=== PATIENT | female | born 1955 | race Asian ===

== ENCOUNTER → 2017-01-05 | Outpatient (CLI) | payer MEDICARE | END | disposition home or self-care (01) | LOC: RAD 09:41 | PROVIDERS: ATTEND Internal Medicine Hematology & Oncology | DX: Z45.2 Encounter for adjustment and management of vascular access device (principal); C76.0 Malignant neoplasm of head, face and neck | CPT/HCPCS: 36569; 76937; 77001; C1751 ==

== ENCOUNTER → 2017-09-08 | Outpatient (CLI) | payer MEDICARE | END | disposition home or self-care (01) | LOC: RAD 09:25 | PROVIDERS: ATTEND Internal Medicine Hematology & Oncology | DX: C76.0 Malignant neoplasm of head, face and neck (principal) | CPT/HCPCS: 36569; 76937; 77001; C1751 ==

== ENCOUNTER 2017-10-27 11:28 | Inpatient (IN) | payer MEDICARE ==
[~2017-10-27] VITALS: Ht 160 cm; Wt 45.1 kg
[2017-10-27] MEDS ORDERED: FAMOTIDINE 20 MG/2 ML IVP ONE (12:00)
[2017-10-27] MEDS ORDERED: SODIUM CHLORIDE 0.9% 1,000ML IVBOLUS ONE ×2 (12:00→14:00)
[2017-10-27] MEDS ORDERED: ONDANSETRON ODT 4 MG PO ONE (12:00)
[2017-10-27] MEDS ORDERED: FAMOTIDINE 20 MG/2 ML ONE (12:06)
[2017-10-27] MEDS ORDERED: ONDANSETRON ODT 4 MG ONE (12:06)
[2017-10-27] MEDS ORDERED: MORPHINE SULFATE 4 MG/ML, 1ML ONE ×2 (12:22→13:37)
[2017-10-27] MEDS: MORPHINE SULFATE 4 MG/ML, 1ML IVPush PRN ×2 (12:24→13:47)
[2017-10-27 12:49] LABS: MEAN CORPUSCULAR HEMOGLOBIN 29.2 pg (27.0-34.8); MEAN CORPUSCULAR HGB CONC 32.8 g/dL (32.4-35.8); MEAN CORPUSCULAR VOLUME 89.2 fL (80-100); MEAN PLATELET VOLUME 8.8 fL (7.4-10.4); PLATELET COUNT 169 x10^3/uL (130-400); RED CELL DISTRIBUTION WIDTH 20.5 % (9.6-15.2)
[2017-10-27 12:54] LABS: ALANINE AMINOTRANSFERASE 22 U/L (12-78); ALBUMIN 2.6 g/dL (3.4-5.0); ANION GAP 20 mmol/L (5-15); CALCIUM 10.4 mg/dL (8.5-10.1); CHLORIDE 99 mmol/L (98-107); CREATININE 1.02 mg/dL (0.55-1.02)
[2017-10-27 12:56] LABS: ALKALINE PHOSPHATASE 118 U/L (45-117); BILIRUBIN,TOTAL 1.4 mg/dL (0.2-1.0); TOTAL PROTEIN 7.6 g/dL (6.4-8.2)
[2017-10-27 13:06] LABS: MD YES
[2017-10-27 13:08] LABS: ANISOCYTOSIS 1+; BAND#(MANUAL) 0.94 x10^3/uL; BANDS%(MANUAL) 6 % (0-7); LYMPH#(MANUAL) 0.31 x10^3/uL (1-3.4); LYMPHS% (MANUAL) 2 % (22-44); METAMYELOCYTES# (MANUAL) 0.16 x10^3/uL (0-0); METAMYELOCYTES% (MANUAL) 1 % (0-1); MONOS#(MANUAL) 0.94 x10^3/uL (0.3-2.7); MONOS% (MANUAL) 6 % (2-9); SEG#(MANUAL) 13.35 x10^3/uL (1.8-6.8); SEGS% (MANUAL) 85 % (42-75)
[2017-10-27 13:09] LABS: <PLATELET ESTIMATE> ADEQUATE; <PLT MORPHOLOGY> NORMAL PLT MORPH; TOXIC GRAN 1+
[2017-10-27] MEDS ORDERED: SODIUM CHLORIDE 0.9% 1,000 ML IV ONE (13:36)
[2017-10-27] MEDS ORDERED: PIPERACILLIN/TAZO/PMX 3.375GM 50 ML IVPB ONE (14:00)
[2017-10-27] MEDS ORDERED: MORPHINE SULFATE 4 MG/ML, 1ML IVPush PRN (14:00)
[2017-10-27] MEDS ORDERED: PIPERACILLIN/TAZO/PMX 3.375GM 50 ML ONE (14:19)
[2017-10-27] MEDS ORDERED: METH-356 PO (14:59)
[2017-10-27] MEDS ORDERED: LEVO500T8 PO (14:59)
[2017-10-27] MEDS ORDERED: ONDA4TAB13 SL (14:59)
[2017-10-27] MEDS ORDERED: TEMA30CA PO (14:59)
[2017-10-27] MEDS ORDERED: GABA300C10 PO (14:59)
[2017-10-27] MEDS: NS + 40MEQ KCL 1,000 ML IV SCH (15:55)
[2017-10-27 16:09] VITALS: BP 123/69
[2017-10-27] MEDS ORDERED: OMNIPAQUE 350 MG/ML, 100ML BOTTLE ONE (16:54)
[2017-10-27] MEDS: AMPICILLIN/SULBACTAM 3 GM in SODIUM CHLORIDE 0.9% 100 ML IV SCH ×2 (17:28→23:49)
[2017-10-27] MEDS: NYSTATIN 500,000 UNITS/5 ML UDC PO SCH ×2 (17:28→19:44)
[2017-10-27] MEDS: HEPARIN 5,000 UNITS/ML, 1ML SQ SCH ×2 (17:28→23:50)
[2017-10-27] MEDS: DEXAMETHASONE 4 MG/ML, 1ML IVPush SCH ×2 (17:28→22:10)
[2017-10-27] MEDS ORDERED: ONDANSETRON 2MG/ML, 2ML IVPush PRN (18:15)
[2017-10-27 19:03] VITALS: BP 138/72
[2017-10-27] MEDS: morphine SULFATE 10 MG/ML, 1ML IVPush PRN ×2 (19:44→22:51)
[2017-10-28 01:06] VITALS: BP 100/52
[2017-10-28] MEDS: DEXAMETHASONE 4 MG/ML, 1ML IVPush SCH ×2 (03:10→08:16)
[2017-10-28] MEDS: morphine SULFATE 10 MG/ML, 1ML IVPush PRN ×3 (04:59→13:57)
[2017-10-28] MEDS: NYSTATIN 500,000 UNITS/5 ML UDC PO SCH ×2 (05:08→11:00)
[2017-10-28] MEDS: AMPICILLIN/SULBACTAM 3 GM in SODIUM CHLORIDE 0.9% 100 ML IV SCH (05:08)
[2017-10-28] MEDS: NS + 40MEQ KCL 1,000 ML IV SCH ×2 (05:17→08:20)
[2017-10-28 05:47] LABS: ALBUMIN 2.1 g/dL (3.4-5.0); ANION GAP 15 mmol/L (5-15); CALCIUM 9.8 mg/dL (8.5-10.1); CHLORIDE 113 mmol/L (98-107)
[2017-10-28 05:52] LABS: ALANINE AMINOTRANSFERASE 19 U/L (12-78); ALKALINE PHOSPHATASE 97 U/L (45-117); BILIRUBIN,TOTAL 1.2 mg/dL (0.2-1.0); CREATININE 0.86 mg/dL (0.55-1.02); TOTAL PROTEIN 6.2 g/dL (6.4-8.2)
[2017-10-28 06:00] LABS: MEAN CORPUSCULAR HEMOGLOBIN 29.2 pg (27.0-34.8); MEAN CORPUSCULAR HGB CONC 32.9 g/dL (32.4-35.8); MEAN CORPUSCULAR VOLUME 88.7 fL (80-100); MEAN PLATELET VOLUME 8.8 fL (7.4-10.4); PLATELET COUNT 139 x10^3/uL (130-400); RED BLOOD COUNT 3.03 x10^6/uL (3.82-5.3); RED CELL DISTRIBUTION WIDTH 21.5 % (9.6-15.2)
[2017-10-28 06:32] LABS: MD YES
[2017-10-28 06:35] LABS: BAND#(MANUAL) 2.98 x10^3/uL; BANDS%(MANUAL) 14 % (0-7); LYMPH#(MANUAL) 0.85 x10^3/uL (1-3.4); LYMPHS% (MANUAL) 4 % (22-44); METAMYELOCYTES# (MANUAL) 0.43 x10^3/uL (0-0); METAMYELOCYTES% (MANUAL) 2 % (0-1); NRBC % (MANUAL) 2 % (0-1); SEG#(MANUAL) 17.04 x10^3/uL (1.8-6.8); SEGS% (MANUAL) 80 % (42-75)
[2017-10-28 06:36] LABS: <PLATELET ESTIMATE> ADEQUATE; ANISOCYTOSIS 1+; LARGE PLATELETS 1+; OVALOCYTES 1+; TOXIC GRAN 2+
[2017-10-28] MEDS: HEPARIN 5,000 UNITS/ML, 1ML SQ SCH (08:17)
[2017-10-28 08:24] VITALS: BP 119/63
[2017-10-28] MEDS ORDERED: SODIUM CHLORIDE 0.9% 1,000ML IVBOLUS ONE (08:30)
[2017-10-28] MEDS ORDERED: PIPERACILLIN/TAZO/PMX 3.375GM 50 ML IV SCH (10:00)
[2017-10-28 10:13] VITALS: BP 118/63
[2017-10-28] MEDS ORDERED: VANCOMYCIN 900 MG in SODIUM CHLORIDE 0.9% 100 ML IV SCH (10:30)
[2017-10-28] MEDS ORDERED: PHARMACOKINETIC MONITORING MC PRN (10:30)
[2017-10-28] MEDS ORDERED: VANCOMYCIN PER PHARMACY MC PRN (10:30)
[2017-10-28] MEDS ORDERED: PHARMACOKINETIC CONSULTATION MC ONE (10:30)
[2017-10-29] MEDS ORDERED: VANCOMYCIN 900 MG in SODIUM CHLORIDE 0.9% 100 ML IV SCH (05:00)
== END 2017-10-28 16:25 | disposition hospice, home (50) | DRG 871 ==
LOC: ED 13:44 → EDIP 13:45 → ED 14:03 → 3NW 14:53
PROVIDERS: ADMIT Internal Medicine; ATTEND Internal Medicine
DX: A41.9 Sepsis, unspecified organism (principal); J15.9 Unspecified bacterial pneumonia; B37.0 Candidal stomatitis; C11.9 Malignant neoplasm of nasopharynx, unspecified; E83.52 Hypercalcemia; D64.9 Anemia, unspecified; E86.0 Dehydration; Z51.5 Encounter for palliative care; E87.6 Hypokalemia; G89.29 Other chronic pain; Z79.899 Other long term (current) drug therapy; Z80.1 Family history of malignant neoplasm of trachea, bronchus and lung; Z82.0 Family history of epilepsy and other diseases of the nervous system; Z88.8 Allergy status to other drugs, medicaments and biological substances; Z88.6 Allergy status to analgesic agent
CPT/HCPCS: 36415; 70491; 71045; 71260; 80053; 82330; 83605; 83735; 84100; 84145; 85025; 87040; 87077; 87186; 93005; 96361; 96365; 96375; J0295; J1100; J1644; J2543; J3370; Q0162; Q9967; J2270; J3480; J7030; S0028